=== PATIENT | male | born 1945 | race Caucasian/White ===

== ENCOUNTER 2016-08-30 17:43 | Emergency (ER) | payer MEDICARE, OTHER ==
[2016-08-30 18:27] VITALS: BP 170/100
== END 2016-08-30 18:26 | disposition home or self-care (01) ==
LOC: ER 17:43
DX: Z13.6 Encounter for screening for cardiovascular disorders (principal)

== ENCOUNTER 2016-12-26 05:52 | Day surgery (SDC) | payer MEDICARE, OTHER ==
--- OUTSIDE RECORDS SUMMARY | 2016-12-26 05:55 | XMS REPORT | Continuity of Care Document ---
:1945 Author Organization [facility] ([facility]) Address [address] [place] [address] Phone [phone] Care Team Providers Name Role Phone Dereck Huddleston Primary Care Provider [phone] Source Comments This disclosure is being made pursuant to the Care Everywhere program, applicable federal and state laws, and may not contain all informaitonavailable regarding this patient.[facility] ([facility]) Active Allergies and Adverse Reactions No Known Allergies Current Medications Prescription Sig. Disp. Refills Start Date End Date Status tamsulosin (FLOMAX) 0.4 Take 0.4 mg by Active mg ER capsule mouth at bedtime carvedilol 12.5 mg tablet Take 1 mg by mouth Active 2 times daily with meals clopidogrel 75 mg tablet Take 1 mg by mouth Active daily atorvastatin 20 mg tablet Take 20 mg by mouth Active at bedtime pantoprazole 40 mg EC Take 1 mg by mouth Active tablet at bedtime zolpiDEM 10 mg tablet Take 10 mg by mouth Active at bedtime as needed fluticasone 50 Use 2 Sprays into Active mcg/Actuation nasal spray both nostrils 2 times daily lisinopril 5 mg tablet Take 5 mg by mouth Active daily venlafaxine 75 mg XR Take 75 mg by mouth Active tablet daily acetaminophen-codeine Take 1 Tab by mouth Active 300-30 mg per tablet every 6 hours as needed for Pain cyanocobalamin (VITAMIN Take 2,000 mcg by Active B-12) 1,000 mcg tablet mouth daily Take 2000 mg daily for one week (through 01/08/15), then decrease to 1000 mg daily. nitroglycerin 0.4 mg SL One tab under 01/01/2013 Active tablet tongue for chest pain; may repeat every 5 min up to total of 3 tabs multivitamin tablet Take 1 tablet by Active mouth daily. 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 Last Filed Vital Signs Vital Sign Reading Time Taken Blood Pressure 140/95 07/15/2016 9:58 AM [employer] Pulse 58 07/15/2016 9:58 AM [employer] Temperature 36.7 C (98.1 F) 01/07/2015 8:00 AM CDT Respiratory Rate 16 01/07/2015 8:00 AM CDT Height 1.829 m (6' 0.01") 07/15/2016 9:58 AM [employer] Weight 93.6 kg (206 lb 5.6 oz) 07/15/2016 9:58 AM [employer] Body Mass Index 27.98 07/15/2016 9:58 AM [employer] Oxygen Saturation 98% 07/15/2016 9:58 AM [employer] Plan of Care Date Type Specialty Providers Description 07/21/2017 Appointment Neurology Aubrie Gerardo MD Subj: Appointment Scheduled [address] [place] [address] [phone] (Fax) Health Maintenance Due Date Last Done Comments HCV Screening 1945 Hepatitis B Vaccine (1 of 3 - 1945 Primary Series) Tdap Vaccine 1956 DIABETIC: Microalbumin 1963 Td Vaccine 1963 Colonoscopy 1995 Prostate Cancer Screening 1995 Zoster Vaccine 2005 Pneumococcal Vaccine (1 of 2 2010 - PCV13) DIABETIC: Cholesterol 11/07/2010 11/07/2009 Diabetic: Hdl 11/07/2010 11/07/2009 Diabetic: Ldl 11/07/2010 11/07/2009 DIABETIC: Triglycerides 11/07/2010 11/07/2009 DIABETIC: Foot Exam 12/26/2014 DIABETIC: Retinal Eye Exam 12/26/2014 Influenza Vaccine: Seasonal 03/18/2016 08/30/2014, (#1) 05/28/2014 DIABETIC: Hemoglobin A1C 04/03/2016 10/04/2015, Additional history exists 10/04/2015 (Previously completed), 12/26/2014 Results from Last 3 Months Not on file
[2016-12-26] MEDS ORDERED: DEXAMETHASONE SOD PHOSPHATE 10 MG/ML VIAL IV PRN (06:00)
[2016-12-26] MEDS ORDERED: MORPHINE SULFATE 4 MG/ML SYRG IV PRN ×2 (06:00)
[2016-12-26] MEDS ORDERED: ONDANSETRON HCL/PF 2 MG/ML VIAL IV PRN (06:00)
[2016-12-26] MEDS ORDERED: ceFAZolin SODIUM 1 GM in DEXTROSE 5 % IN WATER 100 ML IV PRN ×2 (06:00)
[2016-12-26] MEDS ORDERED: MORPHINE SULFATE 10 MG/ML SYRG IV PRN ×2 (06:00)
[2016-12-26] MEDS ORDERED: ACETAMINOPHEN 325 MG TABLET PO PRN (06:00)
[2016-12-26] MEDS ORDERED: oxyCODONE HCL/ACETAMINOPHEN 1 TAB TABLET PO PRN ×2 (06:00)
[2016-12-26] MEDS ORDERED: RINGERS SOLUTION,LACTATED 1,000 ML IV PRN (06:00)
[2016-12-26] MEDS ORDERED: RINGERS SOLUTION,LACTATED 1,000 ML IV ONE (06:56)
[2016-12-26] MEDS: OXYMETAZOLINE HCL 150 SPRAY BTL NS PRN ×2 (06:56→06:58)
[2016-12-26] MEDS ORDERED: ceFAZolin SODIUM 1 GM VIAL IV ONE (07:15)
[2016-12-26] MEDS ORDERED: COCAINE HCL 4 APPL BTL TP ONE (07:18)
[2016-12-26] MEDS ORDERED: LIDOCAINE HCL/EPINEPHRINE 30 ML VIAL IJ ONE ×2 (07:18)
[2016-12-26] MEDS ORDERED: MUPIROCIN 22 APPL TUBE TP ONE (07:22)
[2016-12-26 09:27] VITALS: BP 135/84
== END 2016-12-26 05:53 | disposition home or self-care (01) ==
LOC: AMB 05:52
PROVIDERS: ATTEND Allergy & Immunology
PROC: 09SM0ZZ Reposition Nasal Septum, Open Approach (ICD-10-PCS; principal; 2016-12-26 07:00)
DX: J34.2 Deviated nasal septum (principal); J34.3 Hypertrophy of nasal turbinates; I10 Essential (primary) hypertension; E07.9 Disorder of thyroid, unspecified; Z87.891 Personal history of nicotine dependence; Z68.29 Body mass index [BMI] 29.0-29.9, adult

== ENCOUNTER 2017-02-28 09:50 | Emergency (ER) | payer MEDICARE, OTHER ==
[2017-02-28 10:41] LABS: Hematocrit 34.9 % (42.0-52.0); Hemoglobin 11.5 gm/dL (13.5-18.0); Mean Cell Volume 83.7 fl (78-100); Mean Corpuscular Hemoglobin 27.6 pg (27-31); Mean Platelet Volume 10.3 fl (6.0-9.5); Neutrophil # 5.3 K/mm3 (1.3-6.0); Neutrophil % 68.3 % (42-75.0); Platelet Count 199 K/mm3 (150-450); Red Blood Count 4.17 M/mm3 (4.7-6.0); Red Cell Distribution Width 15.5 % (11.5-14.0); White Blood Count 7.7 K/mm3 (4.0-10.5)
[2017-02-28 11:00] LABS: Troponin I Less than 0.017 ng/ml (0.00-0.10)
[2017-02-28 11:02] LABS: ALT 35 U/L (19-67); AST 16 U/L (0-48); Albumin * 3.4 gm/dl (3.4-5.0); Alkaline Phosphatase * 141 U/L (50-170); Anion Gap 7.1 mmol/L (6.8-13.8); BNP * 45 pg/mL (5-350); BUN/Creatinine Ratio 12.8 (9.0-21.6); Bilirubin, Total 0.7 mg/dL (0.0-1.1); Blood Urea Nitrogen 11 mg/dL (6-23); Ca. Corrected For Albumin 8.5 mg/dL (8.4-10.2); Calcium * 8.3 mg/dL (7.9-10.9); Carbon Dioxide 29.6 mmol/L (24-32.6); Chloride 108 mmol/L (97-106); Glucose * 125 mg/dL (70-110); Potassium 3.7 mmol/L (3.4-4.6); Sodium 141 mmol/L (132-142); Total Protein 6.7 gm/dL (6.2-8.2)
[2017-02-28 11:28] LABS: INR 1.04 INR (0.90-1.10); Partial Thrombolplastin Time 26.5 Seconds (24-32); Prothrombin Time (Patient) 10.8 Seconds (9.4-11.4)
--- NOTE | 2017-02-28 11:43 | ERNOTE ---
GI Bleeding/Rectal Pain ER Date of Service: 02/28/17 Presenting Symptoms: rectal bleeding - patient had colonscpe with polyps removed, went back onplavix had small amont of bleeding rectally this am Time Seen by Provider: 02/28/17 10:10 Source: patient Exam Limitations: no limitations Immunizations: IMMUNIZATION HX Immunizations Up to Date Yes History of Influenza Vaccine Yes Hx Pneumococcal Vaccination Yes Allergies/Adverse Reactions: Allergies No Known Allergies Allergy (Verified 02/28/17 10:23) Home Medications: HOME MEDICATIONS Clopidogrel Bisulfate [Plavix] 75 mg PO DAILY 07/03/13 [Last Taken 12/21/16 08: 00] Fluticasone Propionate [Flonase] 2 puff NS DAILY PRN 07/03/13 [Last Taken Unknown] Lisinopril 10 mg PO DAILY 07/03/13 [Last Taken Unknown] Tamsulosin HCl [Flomax] 0.4 mg PO DAILY 07/03/13 [Last Taken Unknown] Zolpidem Tartrate [Ambien] 10 mg PO HS 07/03/13 [Last Taken Unknown] Acetaminophen with Codeine [Tylenol-Codeine 300 MG/30 MG] 1 each PO TID PRN [Last Taken Unknown] Carvedilol [Coreg] 6.25 mg PO BID 12/23/16 [Last Taken 12/26/16 05:30] Finasteride [Proscar] 5 mg PO DAILY 12/23/16 [Last Taken Unknown] Mirtazapine 7.5 mg PO DAILY 12/23/16 [Last Taken Unknown] Budesonide/Formoterol Fumarate [Symbicort 80-4.5 Mcg Inhaler] 10.2 gm IH DAILY 02/28/17 [Last Taken Unknown] Zoloft 02/28/17 [Last Taken Unknown] Timing: intermittent Quality/Severity: Present: mild Nausea/Vomiting: Present: none Abdominal Pain: Present: none Rectal Bleeding: Present: bright red blood on paper Associated Symptoms: Reports: maroon stools Prior Treament: Reports: recently seen, treated by physician Review of Systems - Review of Systems Constitutional: Present: no symptoms reported EYE: Present: no symptoms reported ENT: Present: no symptoms reported Respiratory: Present: no symptoms reported Cardiology: Present: no symptoms reported Gastrointestinal/Abdominal: Present: other - rectal bleeding Genitourinary: Present: no symptoms reported Musculoskeletal: Present: no symptoms reported Skin: Present: no symptoms reported Neurological: Present: no symptoms reported Endocrine: Present: no symptoms reported Hematologic/Lymphatic: Present: no symptoms reported Psych: Present: no symptoms reported All Other Systems: All systems neg except as marked - Patient's Past Medical History Patient History - Medical: No pertinent hx, Anemia Patient History - Cardiac/Respiratory: COPD, CVA/Stroke, Hypertension, Hyperlipidemia Patient History - Cancer: No Hx of Cancer Patient History - Surgical Procedures: Appendectomy, Back Surgery, Colonoscopy, Cardiac stent, T & A, Other Patient History - Other: None - Family History Mother Family History - Medical: , No pertinent hx Family History - Cardiac/Respiratory: CVA/Stroke Family History - Cancer: No pertinent family hx Father Family History - Medical: , No pertinent hx Family History - Cardiac/Respiratory: No pertinent hx Family History - Cancer: Bladder - Social History Living Situations: home Abuse History: No History of abuse Psych History: Hx of Anxiety, Hx of Depression, Current tx/ever been on anti- depressants or anti-anxiety meds Smoking Status: Former smoker Have you smoked in the past 12 months: No Do you dip or chew tobacco: No Alcohol Use: none Drug Use: none - Immunizations Immunizations Up to Date: Yes Hx Pneumococcal Vaccination: Yes History of Influenza Vaccine: Yes Physical Exam - Physical Exam General Appearance: Present: no apparent distress Head Exam: Present: normal inspection Eye Exam: Normal inspection: bilateral, PERRL: bilateral, EOMI: bilateral Ears, Nose, Throat: Present: normal ENT inspection Neck: Present: normal inspection, nontender Respiratory: Present: no respiratory distress, normal breath sounds, no accessory muscle use, chest nontender, lungs clear Cardiovascular/Chest: Present: regular rate, rhythm, no murmur, normal peripheral pulses Peripheral Pulses: N=norm/S=strong/W=weak/B=bound/A=absent: Carotid (R): Normal , Carotid (L): Normal, Radial (R): Normal, Radial (L): Normal, Femoral (R): Normal, Femoral (L): Normal, Dorsalis-pedis (R): Normal, Dorsalis-pedis (L): Normal Gastrointestinal/Abdominal: Present: normal bowel sounds, nontender, nondistended, soft, no organomegaly Rectal Exam: Present: nontender, normal rectal tone - no evidense of bleediing in [id number] Male Genitals Exam: Present: normal genitalia, normal prostate, no hernia Back Exam: Present: normal inspection, normal range of motion, no CVA tenderness , no vertebral tenderness Extremity Exam: Present: normal inspection, non-tender, normal range of motion, no edema Neurological Exam: Present: alert, oriented, normal mood/affect, no motor/ sensory deficits DTR: N=norm/NB=norm/brisk/A=abs/DD=dull/dimin/HC=hyperactive: Bicep (R): Normal , Bicep (L): Normal, Tricep (R): Normal, Tricep (L): Normal, Knee (R): Normal, Knee (L): Normal, Ankle (R): Normal, Ankle (L): Normal Skin Exam: Present: normal color, warm/dry Lymphatic Exam: Present: no adenopathy ED Progress - Results and Orders Patient's Lab Results:: I have reviewed the patient's lab results. - Vital Signs Patient's Vital Signs:: I have reviewed the patient's vital signs. Vital Signs: Vital Signs 02/28/17 02/28/17 02/28/17 10:03 10:19 10:20 Temperature 36.7 C Pulse Rate 63 63 63 Respiratory 22 H 17 Rate Blood Pressure 147/75 181/86 O2 Sat by Pulse 98 98 Oximetry 02/28/17 02/28/17 02/28/17 10:35 11:05 11:17 Temperature Pulse Rate 62 63 64 Respiratory 12 16 15 Rate Blood Pressure 151/82 145/83 131/79 O2 Sat by Pulse 97 98 96 Oximetry - Progress/Reassessment Chief Complaint: GI Bleed Departure Clinical Impression: Rectal bleeding - Departure Disposition: Home self-care Condition: Fair Instructions: Bloody Diarrhea Referrals: Dereck Owen MD [Primary Care Provider] -
[2017-02-28 12:13] VITALS: BP 142/59
== END 2017-02-28 11:50 | disposition home or self-care (01) ==
LOC: ER 09:50
DX: K62.5 Hemorrhage of anus and rectum (principal); Z98.890 Other specified postprocedural states; Z86.010 Personal history of colon polyps

== ENCOUNTER 2017-03-18 15:35 | Observation (INO) | payer MEDICARE, OTHER ==
[2017-03-18 15:55] LABS: Hematocrit 32.5 % (42.0-52.0); Hemoglobin 10.8 gm/dL (13.5-18.0); Mean Cell Volume 84.2 fl (78-100); Mean Corpuscular Hgb Conc 33.2 g/dl (32-36); Neutrophil # 4.5 K/mm3 (1.3-6.0); Neutrophil % 65.7 % (42-75.0); Platelet Count 229 K/mm3 (150-450); Red Blood Count 3.86 M/mm3 (4.7-6.0); Red Cell Distribution Width 14.3 % (11.5-14.0); White Blood Count 6.9 K/mm3 (4.0-10.5)
[2017-03-18] MEDS ORDERED: ASPIRIN 81 MG TAB.CHEW ONE (16:03)
[2017-03-18] MEDS ORDERED: NITROGLYCERIN 0.4 MG/TAB BTL SL ONE ×2 (16:04→16:10)
[2017-03-18] MEDS ORDERED: ASPIRIN 81 MG TAB.CHEW PO ONE (16:04)
[2017-03-18 16:07] LABS: Prothrombin Time (Patient) 10.7 Seconds (9.4-11.4)
[2017-03-18 16:09] LABS: INR 1.03 INR (0.90-1.10); Partial Thrombolplastin Time 28.9 Seconds (24-32)
--- NOTE | 2017-03-18 16:12 | ERNOTE ---
Chest Pain/Cardiac HPI Chief Complaint: Chest Pain Time Seen by Provider: 03/18/17 15:58 Source: patient Exam Limitations: no limitations Immunizations: IMMUNIZATION HX Immunizations Up to Date Yes History of Influenza Vaccine Yes Hx Pneumococcal Vaccination Yes Allergies/Adverse Reactions: Allergies No Known Allergies Allergy (Verified 03/18/17 15:53) Home Medications: HOME MEDICATIONS Clopidogrel Bisulfate [Plavix] 75 mg PO DAILY 07/03/13 [Last Taken 12/21/16 08: 00] Fluticasone Propionate [Flonase] 2 puff NS DAILY PRN 07/03/13 [Last Taken Unknown] Lisinopril 10 mg PO DAILY 07/03/13 [Last Taken Unknown] Tamsulosin HCl [Flomax] 0.4 mg PO DAILY 07/03/13 [Last Taken Unknown] Zolpidem Tartrate [Ambien] 10 mg PO HS 07/03/13 [Last Taken Unknown] Carvedilol [Coreg] 6.25 mg PO BID 12/23/16 [Last Taken 12/26/16 05:30] Finasteride [Proscar] 5 mg PO DAILY 12/23/16 [Last Taken Unknown] Mirtazapine 7.5 mg PO DAILY 12/23/16 [Last Taken Unknown] Budesonide/Formoterol Fumarate [Symbicort 80-4.5 Mcg Inhaler] 10.2 gm IH DAILY 02/28/17 [Last Taken Unknown] Zoloft PO DAILY 02/28/17 [Last Taken Unknown] Narrative: Patient has a history of an NM treated with a stent about four years ago. Today with minimal activity he started to have chest pressure, mild shortness of breath and felt clammy and is concerned Date (Duration): 03/18/17 Time (Timing): 12:00 Location: central Chest Pain Radiation: no radiation Activities at Onset: activity Nitro Today/Relief: no nitro taken today Aspirin Treatment Today: no aspirin today Prior Chest Pain/Cardiac Workup: Reports: prior chest pain, heart attack Review of Systems - Review of Systems Constitutional: Absent: recent illness, fever ENT: Absent: nose congestion, sore throat Respiratory: Present: See HPI, shortness of breath. Absent: cough Cardiology: Present: See HPI, chest pain Gastrointestinal/Abdominal: Absent: nausea, vomiting, abdominal pain Genitourinary: Present: no symptoms reported Musculoskeletal: Absent: back pain Neurological: Absent: headache - Patient's Past Medical History Patient History - Medical: Anemia Patient History - Cardiac/Respiratory: Coronary Heart Disease, COPD, CVA/Stroke , Hypertension, Hyperlipidemia Patient History - Cancer: No Hx of Cancer Patient History - Surgical Procedures: Appendectomy, Back Surgery, Colonoscopy, Cardiac stent, T & A, Other Patient History - Other: None - Family History Mother Family History - Medical: , No pertinent hx Family History - Cardiac/Respiratory: CVA/Stroke Family History - Cancer: No pertinent family hx Father Family History - Medical: , No pertinent hx Family History - Cardiac/Respiratory: No pertinent hx Family History - Cancer: Bladder - Social History Living Situations: home Abuse History: No History of abuse Psych History: Hx of Anxiety, Hx of Depression, Current tx/ever been on anti- depressants or anti-anxiety meds Smoking Status: Never smoker Alcohol Use: none Drug Use: none - Immunizations Immunizations Up to Date: Yes Hx Pneumococcal Vaccination: Yes History of Influenza Vaccine: Yes Physical Exam - Physical Exam General Appearance: Present: wd/wn, alert, no apparent distress, anxious Respiratory: Present: no respiratory distress, normal breath sounds, no accessory muscle use, lungs clear Cardiovascular/Chest: Present: regular rate, rhythm, no murmur Gastrointestinal/Abdominal: Present: normal bowel sounds, nontender, nondistended, soft Extremity Exam: Present: no edema Neurological Exam: Present: alert, oriented, normal mood/affect Skin Exam: Present: normal color, warm/dry ED Progress - Results and Orders Patient's Lab Results:: I have reviewed the patient's lab results. - Vital Signs Patient's Vital Signs:: I have reviewed the patient's vital signs. Vital Signs: Vital Signs 03/18/17 03/18/17 15:39 15:49 Temperature 36.8 C Pulse Rate 63 66 Respiratory 14 Rate Blood Pressure 164/84 O2 Sat by Pulse 94 Oximetry - EKG EKG: NSR, other - no acute EKG read: Interp. by me - X-Ray X-Ray #1 X-Ray: chest - no acute Interpretation: Reviewed by me - Progress/Reassessment Chief Complaint: Chest Pain Progress Note-Subjective: 03/18/17 16:10 pressure improved after first nitro 03/18/17 16:20 chest pain resolved after second nitro 03/18/17 16:37 no pain, discussed results with patient, offered admission, patient agreed 03/18/17 16:[address] Peña 03/18/17 16:[address] Peña,okay to admit for chest pain observation Departure - Departure Clinical Impression: Chest pain Qualifiers: Chest pain type: precordial pain Qualified Code(s): R07.2 - Precordial pain Disposition: [facility] Condition: Good Referrals: Dereck Owen MD [Primary Care Provider] -
[2017-03-18 16:15] LABS: ALT 20 U/L (19-67); AST 13 U/L (0-48); Albumin * 3.6 gm/dl (3.4-5.0); Alkaline Phosphatase * 152 U/L (50-170); BUN/Creatinine Ratio 7.1 (9.0-21.6); Bilirubin, Total 0.7 mg/dL (0.0-1.1); Blood Urea Nitrogen 7 mg/dL (6-23); Ca. Corrected For Albumin 8.3 mg/dL (8.4-10.2); Calcium * 8.3 mg/dL (7.9-10.9); Carbon Dioxide 27.7 mmol/L (24-32.6); Chloride 108 mmol/L (97-106); Glucose * 133 mg/dL (70-110); Potassium 3.7 mmol/L (3.4-4.6); Sodium 143 mmol/L (132-142); Total Protein 7.1 gm/dL (6.2-8.2)
[2017-03-18 16:18] LABS: Troponin I Less than 0.017 ng/ml (0.00-0.10)
[2017-03-18] MEDS ORDERED: ATORVASTATIN CALCIUM 40 MG TABLET PO STA (16:56)
[2017-03-18] MEDS ORDERED: NITROGLYCERIN 0.4 MG/TAB BTL SL PRN ×2 (16:56→20:14)
[2017-03-18] MEDS ORDERED: ROSUVASTATIN CALCIUM 20 MG TABLET PO STA (17:03)
[2017-03-18] MEDS ORDERED: ACETAMINOPHEN 325 MG TABLET PO PRN (20:14)
[2017-03-18] MEDS ORDERED: FLUTICASONE PROPIONATE 120 SPRAY INHALER NS PRN (20:14)
[2017-03-18] MEDS ORDERED: POLYVINYL ALCOHOL 150 DROP BTL EACHEYE PRN (20:31)
--- NOTE | 2017-03-18 20:36 | HP ---
<Sanjuana Guerrero - Last Filed: 03/19/17 01:34> Chief Complaint - Chief Complaint Date of Service: 03/18/17 Time of Service: 20:36 Chief Complaint: chest pain, history cad with stent History of Present Illness: Teja is a 71 year old male patient of Dr Huddleston with a PMH of CAD with inferior wall STEMI in 12/2012 (stent to mid-circ and PTCA to 1st OM, currently on coreg, plavix and lipitor), HTN (on coreg and lisinopril), LEYDA (using cpap), multiple CVAs (including ICH 10/2009 from HTN, non-hemorrhagic CVA 12/2011 and non -hemorrhagic CVA 2013 - currently on Plavix), and gerd (on protonix) who presented to the ER today with c/o chest pressure and "not feeling well". Also c/o mild dyspnea. symptoms resolved in ER after 2 sl NTG. ER eval revealed non -acute chest xray. EKG showed NSR with no acute st-t wave changes. labs unremarkable except for anemia noted with hgb 10.8 (records reveal this appears to be chronic in nature). Patient admitted to the floor for chest pain of unknown etiology. Last echo 11/18/16 showed ef 50-55% with evidence of diastolic dysfunction, mild concentric LVH and trace MR, trace MA. last stress test was negative for stress induced ischemia. - Patient's Past Medical History Patient History - Medical: Anemia, Arthritis, Cataracts, Depression, Seizures, Other Patient History - Cardiac/Respiratory: Coronary Heart Disease, COPD, CVA/Stroke , Hypertension, Hyperlipidemia, Myocardial Infarction, TIA, CPAP/BiPAP Home Use , Sleep Apnea Patient History - Cancer: No Hx of Cancer Patient History - Surgical Procedures: Appendectomy, Back Surgery, Colonoscopy, Cardiac stent, T & A, Other Patient History - Other: None - Family History Mother Family History - Medical: , No pertinent hx Family History - Cardiac/Respiratory: Coronary Heart Disease, CVA/Stroke Family History - Cancer: No pertinent family hx Father Family History - Medical: , No pertinent hx Family History - Cardiac/Respiratory: No pertinent hx Family History - Cancer: Bladder Brother Family History - Medical: , No pertinent hx Family History - Cardiac/Respiratory: Coronary Heart Disease Sister Family History - Medical: No pertinent hx Family History - Cardiac/Respiratory: CVA/Stroke - Social History Living Situations: alone Abuse History: No History of abuse Psych History: Hx of Anxiety, Hx of Depression, Current tx/ever been on anti- depressants or anti-anxiety meds Smoking Status: Former smoker Have you smoked in the past 12 months: No Do you dip or chew tobacco: No Alcohol Use: none Drug Use: none - Immunizations Immunizations Up to Date: Yes Hx Pneumococcal Vaccination: Yes History of Influenza Vaccine: Yes Review Of Systems (GEN) - Review of Systems Generalized/Overall Review: Present: No Symptoms Reported EENTM: Present: No Symptoms Reported Respiratory: Present: Shortness of Breath. Absent: Cough, Wheezing Cardiac: Present: Chest Pain. Absent: Edema, Palpitations, Syncope Abdominal: Present: No Symptoms Reported Genitourinary: Present: No Symptoms Reported Musculoskeletal: Present: No Symptoms Reported Neurological: Present: No Symptoms Reported Skin: Present: No Symptoms Reported Endocrine: Present: No Symptoms Reported Misc: All systems neg except as marked Immunizations: IMMUNIZATION HX Immunizations Up to Date Yes History of Influenza Vaccine Yes Hx Pneumococcal Vaccination Yes Allergies/Adverse Reactions: Allergies Allergy/AdvReac Type Severity Reaction Status Date / Time No Known Allergies Allergy Verified 03/18/17 17:28 Home Medications: HOME MEDICATIONS Clopidogrel Bisulfate [Plavix] 75 mg PO DAILY 07/03/13 [Last Taken 03/18/17 09: 00] Fluticasone Propionate [Flonase] 2 puff NS DAILY PRN 07/03/13 [Last Taken 10:00] Lisinopril 5 mg PO DAILY 07/03/13 [Last Taken 03/18/17 09:00] Tamsulosin HCl [Flomax] 0.4 mg PO DAILY 07/03/13 [Last Taken 03/17/17 21:00] Zolpidem Tartrate [Ambien] 10 mg PO HS 07/03/13 [Last Taken 03/17/17 21:00] Carvedilol [Coreg] 6.25 mg PO BID 12/23/16 [Last Taken 03/18/17 09:00] Finasteride [Proscar] 5 mg PO DAILY 12/23/16 [Last Taken 03/17/17 21:00] Budesonide/Formoterol Fumarate [Symbicort 80-4.5 Mcg Inhaler] 10.2 gm IH BID [Last Taken Unknown] Acetaminophen [Tylenol] 650 mg PO Q6H PRN 03/18/17 [Last Taken Unknown] Atorvastatin Calcium [Lipitor] 20 mg PO DAILY 03/18/17 [Last Taken Unknown] Bupropion HCl [Wellbutrin Sr] 150 mg PO DAILY 03/18/17 [Last Taken Unknown] Cyanocobalamin (Vitamin B-12) [Vitamin B-12] 1,000 mcg PO BID 03/18/17 [Last Taken Unknown] Dextran 70/Hypromellose/Pf [Artificial Tears Drops] 1 each OP QID PRN 03/18/17 [ Last Taken Unknown] Ferrous Sulfate 325 mg PO TID 03/18/17 [Last Taken Unknown] Nitroglycerin 0.4 mg SL Q5MIN PRN 03/18/17 [Last Taken 03/18/17] Pantoprazole Sodium 40 mg PO DAILY 03/18/17 [Last Taken Unknown] Polyethylene Glycol 3350 [Miralax] 17 gm PO DAILY PRN 03/18/17 [Last Taken Unknown] Venlafaxine HCl [Venlafaxine HCl ER] 75 mg PO DAILY 03/18/17 [Last Taken Unknown ] Exam - Exam Vital Signs: Vital Signs - Last Taken Temp 36.3 C L 03/18/17 18:50 Pulse 57 L 03/18/17 18:50 Resp 16 03/18/17 18:50 BP 128/73 03/18/17 18:50 Pulse Ox 98 03/18/17 18:50 Constitutional: Present: Alert, Oriented x3, Cooperative, No distress, Elderly ENT Exam: Present: hearing grossly normal Eye Exam: bilateral eye: normal inspection Neck: Present: full range of motion, supple Back Exam: Present: normal inspection, no vertebral tenderness Breasts: Present: Exam deferred Respiratory: Present: no respiratory distress, no accessory muscle use, decreased breath sounds Cardiovascular/Chest: Present: normal peripheral pulses, regular rate, rhythm, no chest tenderness, no murmur Peripheral Pulses: carotid (R): 2+, carotid (L): 2+, dorsalis-pedis (R): 2+, dorsalis-pedis (L): 2+, radial (R): 2+, radial (L): 2+ Abdomen: Present: Normal bowel sounds, soft, nontender, nondistended /Rectal: Present: Exam deferred Extremity: Present: normal range of motion, non-tender, normal inspection Skin Exam: Present: normal color, warm/dry, no cyanosis Diagnostic Studies: Laboratory Results WBC 6.9 K/mm3 (4.0-10.5) 03/18/17 15:41 RBC 3.86 M/mm3 (4.7-6.0) L 03/18/17 15:41 Hgb 10.8 gm/dL (13.5-18.0) L 03/18/17 15:41 Hct 32.5 % (42.0-52.0) L 03/18/17 15:41 MCV 84.2 fl (78-100) 03/18/17 15:41 MCH 28.0 pg (27-31) 03/18/17 15:41 MCHC 33.2 g/dl (32-36) 03/18/17 15:41 RDW 14.3 % (11.5-14.0) H 03/18/17 15:41 Plt Count 229 K/mm3 (150-450) 03/18/17 15:41 MPV 11.0 fl (6.0-9.5) H 03/18/17 15:41 Immature Gran % (Auto) 0.70 % (0.001-0.429) H 03/18/17 15:41 Immature Gran # (Auto) 0.05 K/mm3 (0.000-0.0310) H 03/18/17 15:41 Neutrophils % 65.7 % (42-75.0) 03/18/17 15:41 Lymphocytes % 22.6 % (20-51) 03/18/17 15:41 Monocytes % 7.5 % (0.0-9) 03/18/17 15:41 Eosinophils % 2.8 % (0.0-3.0) 03/18/17 15:41 Basophils % 0.7 % (0.0-1.0) 03/18/17 15:41 Nucleated RBC % 0.0 k/mm3 (0-1) 03/18/17 15:41 Neutrophils # 4.5 K/mm3 (1.3-6.0) 03/18/17 15:41 Lymphocytes # 1.6 k/mm3 (1.5-3.5) 03/18/17 15:41 Monocytes # 0.5 k/mm3 (0.0-1.0) 03/18/17 15:41 Eosinophils # 0.2 k/mm3 (0.0-0.7) 03/18/17 15:41 Absolute Basophils 0.1 k/mm3 (0.0-0.1) 03/18/17 15:41 PT 10.7 Seconds (9.4-11.4) 03/18/17 15:47 INR (Anticoag Therapy) 1.03 INR (0.90-1.10) 03/18/17 15:47 PTT (Real) 28.9 Seconds (24-32) 03/18/17 15:47 Sodium 143 mmol/L (132-142) H 03/18/17 15:47 Plasma Sodium 144 mmol/L (130-142) H 03/18/17 15:47 Potassium 3.7 mmol/L (3.4-4.6) 03/18/17 15:47 Chloride 108 mmol/L (97-106) H 03/18/17 15:47 Carbon Dioxide 27.7 mmol/L (24-32.6) 03/18/17 15:47 Anion Gap 11.0 mmol/L (6.8-13.8) 03/18/17 15:47 BUN 7 mg/dL (6-23) 03/18/17 15:47 Creatinine 0.98 mg/dL (0.4-1.4) 03/18/17 15:47 Est GFR (Non-Af Amer) 80 mL/min (60-130) 03/18/17 15:47 BUN/Creatinine Ratio 7.1 (9.0-21.6) L 03/18/17 15:47 Random Glucose 133 mg/dL (70-110) H 03/18/17 15:47 Calcium 8.3 mg/dL (7.9-10.9) 03/18/17 15:47 Calcium Adj for Albumin 8.3 mg/dL (8.4-10.2) L 03/18/17 15:47 Total Bilirubin 0.7 mg/dL (0.0-1.1) 03/18/17 15:47 AST 13 U/L (0-48) 03/18/17 15:47 ALT 20 U/L (19-67) 03/18/17 15:47 Alkaline Phosphatase 152 U/L (50-170) 03/18/17 15:47 Troponin I Less than 0.017 ng/ml (0.00-0.10) 03/18/17 15:47 Total Protein 7.1 gm/dL (6.2-8.2) 03/18/17 15:47 Albumin 3.6 gm/dl (3.4-5.0) 03/18/17 15:47 Assessment/Plan - Narrative Narrative: Chest pain of unknown etiology - 1st troponin negative - trend troponin overnight with a second EKG - no symptoms currently - recent stress test 11/19/16 showed no ischemia - monitor on telemetry - vital signs q 4 hours - continue coreg, plavix - if enzymes remain negative and patient continues to have no symptoms, likely discharge in am. HTN - vital signs q 4 hours - continue coreg and lisinopril hx CVAs - continue plavix GERD - continue protonix anemia - hgb stable. - likely secondary to iron def. anemia and/or anemia of chronic disease - cont iron supplement LEYDA - cont cpap while admitted BPH - cont proscar and flomax Code status: Full Code VTE: early ambulation GI Proph: protonix po. - Assessment/Plan (1) Chest pain of unknown etiology Problem: Acute (2) History of ST elevation myocardial infarction (STEMI) Problem: Chronic (3) CAD (coronary artery disease) Problem: Chronic QualifierTitle: Coronary Disease-Associated Artery/Lesion type: enterprise artery [place] vs. transplanted heart: enterprise heart Associated angina: angina presence unspecified Qualified Code(s): I25.10 - Atherosclerotic heart disease of enterprise coronary artery without angina pectoris (4) CVA (cerebral vascular accident) Problem: Chronic QualifierTitle: CVA mechanism: unspecified Qualified Code(s): I63.9 - Cerebral infarction, unspecified (5) LEYDA on CPAP Problem: Chronic (6) HTN (hypertension) Problem: Chronic QualifierTitle: Hypertension type: essential hypertension Qualified Code( s): I10 - Essential (primary) hypertension (7) GERD (gastroesophageal reflux disease) Problem: Chronic QualifierTitle: Esophagitis presence: esophagitis presence not specified Qualified Code(s): K21.9 - Gastro-esophageal reflux disease without esophagitis (8) Depression Problem: Chronic QualifierTitle: Depression Type: unspecified Qualified Code(s): F32.9 - Major depressive disorder, single episode, unspecified (9) BPH (benign prostatic hyperplasia) Problem: Chronic QualifierTitle: Lower urinary tract symptom presence: symptoms absent Qualified Code(s): N40.0 - Benign prostatic hyperplasia without lower urinary tract symptoms (10) Anemia Problem: Chronic QualifierTitle: Anemia type: unspecified type Qualified Code(s): D64.9 - Anemia, unspecified <Dereck Owen - Last Filed: 03/19/17 08:50> Immunizations: IMMUNIZATION HX Immunizations Up to Date Yes History of Influenza Vaccine Yes Hx Pneumococcal Vaccination Yes Exam - Exam Vital Signs: Vital Signs - Last Taken Temp 36.4 C L 03/19/17 03:06 Pulse 59 L 03/19/17 08:08 Resp 21 H 03/19/17 03:06 BP 170/86 03/19/17 08:08 Pulse Ox 94 03/19/17 03:06 Diagnostic Studies: Laboratory Results WBC 6.9 K/mm3 (4.0-10.5) 03/18/17 15:41 RBC 3.86 M/mm3 (4.7-6.0) L 03/18/17 15:41 Hgb 10.8 gm/dL (13.5-18.0) L 03/18/17 15:41 Hct 32.5 % (42.0-52.0) L 03/18/17 15:41 MCV 84.2 fl (78-100) 03/18/17 15:41 MCH 28.0 pg (27-31) 03/18/17 15:41 MCHC 33.2 g/dl (32-36) 03/18/17 15:41 RDW 14.3 % (11.5-14.0) H 03/18/17 15:41 Plt Count 229 K/mm3 (150-450) 03/18/17 15:41 MPV 11.0 fl (6.0-9.5) H 03/18/17 15:41 Immature Gran % (Auto) 0.70 % (0.001-0.429) H 03/18/17 15:41 Immature Gran # (Auto) 0.05 K/mm3 (0.000-0.0310) H 03/18/17 15:41 Neutrophils % 65.7 % (42-75.0) 03/18/17 15:41 Lymphocytes % 22.6 % (20-51) 03/18/17 15:41 Monocytes % 7.5 % (0.0-9) 03/18/17 15:41 Eosinophils % 2.8 % (0.0-3.0) 03/18/17 15:41 Basophils % 0.7 % (0.0-1.0) 03/18/17 15:41 Nucleated RBC % 0.0 k/mm3 (0-1) 03/18/17 15:41 Neutrophils # 4.5 K/mm3 (1.3-6.0) 03/18/17 15:41 Lymphocytes # 1.6 k/mm3 (1.5-3.5) 03/18/17 15:41 Monocytes # 0.5 k/mm3 (0.0-1.0) 03/18/17 15:41 Eosinophils # 0.2 k/mm3 (0.0-0.7) 03/18/17 15:41 Absolute Basophils 0.1 k/mm3 (0.0-0.1) 03/18/17 15:41 PT 10.7 Seconds (9.4-11.4) 03/18/17 15:47 INR (Anticoag Therapy) 1.03 INR (0.90-1.10) 03/18/17 15:47 PTT ([place]) 28.9 Seconds (24-32) 03/18/17 15:47 Sodium 143 mmol/L (132-142) H 03/18/17 15:47 Plasma Sodium 144 mmol/L (130-142) H 03/18/17 15:47 Potassium 3.7 mmol/L (3.4-4.6) 03/18/17 15:47 Chloride 108 mmol/L (97-106) H 03/18/17 15:47 Carbon Dioxide 27.7 mmol/L (24-32.6) 03/18/17 15:47 Anion Gap 11.0 mmol/L (6.8-13.8) 03/18/17 15:47 BUN 7 mg/dL (6-23) 03/18/17 15:47 Creatinine 0.98 mg/dL (0.4-1.4) 03/18/17 15:47 Est GFR (Non-Af Amer) 80 mL/min (60-130) 03/18/17 15:47 BUN/Creatinine Ratio 7.1 (9.0-21.6) L 03/18/17 15:47 Random Glucose 133 mg/dL (70-110) H 03/18/17 15:47 Calcium 8.3 mg/dL (7.9-10.9) 03/18/17 15:47 Calcium Adj for Albumin 8.3 mg/dL (8.4-10.2) L 03/18/17 15:47 Total Bilirubin 0.7 mg/dL (0.0-1.1) 03/18/17 15:47 AST 13 U/L (0-48) 03/18/17 15:47 ALT 20 U/L (19-67) 03/18/17 15:47 Alkaline Phosphatase 152 U/L (50-170) 03/18/17 15:47 Troponin I Less than 0.017 ng/ml (0.00-0.10) 03/19/17 04:00 Total Protein 7.1 gm/dL (6.2-8.2) 03/18/17 15:47 Albumin 3.6 gm/dl (3.4-5.0) 03/18/17 15:47 Assessment/Plan - Narrative Narrative: His symptoms yesterday came on at rest. They were indentical to his [place] symptoms. I directed all of our nurse practitioner hospitalist care for this patient.
[2017-03-18] MEDS ORDERED: POLYETHYLENE GLYCOL 3350 119 GM BTL PO PRN (20:45)
[2017-03-18] MEDS: FLUTICASONE/SALMETEROL 14 PUFF DISK.W.DEV IH SCH (20:51)
[2017-03-18] MEDS: FERROUS SULFATE 325 MG TABLET PO SCH (20:51)
[2017-03-18] MEDS: CYANOCOBALAMIN 1,000 MCG TABLET PO SCH (20:51)
[2017-03-18] MEDS: CARVEDILOL 6.25 MG TABLET PO SCH (20:52)
[2017-03-18] MEDS ORDERED: ZOLPIDEM TARTRATE 10 MG TABLET PO SCH (21:00)
[2017-03-19] MEDS ORDERED: PANTOPRAZOLE SODIUM 40 MG TABLET.EC PO SCH ×2 (07:00→09:00)
[2017-03-19] MEDS: FLUTICASONE/SALMETEROL 14 PUFF DISK.W.DEV IH SCH (08:05)
[2017-03-19] MEDS: CYANOCOBALAMIN 1,000 MCG TABLET PO SCH (08:07)
[2017-03-19] MEDS: FERROUS SULFATE 325 MG TABLET PO SCH (08:07)
[2017-03-19 08:08] VITALS: BP 170/86
[2017-03-19] MEDS: CARVEDILOL 6.25 MG TABLET PO SCH (08:08)
--- NOTE | 2017-03-19 08:56 | DS ---
Description of Stay: Remained stable while in the hospital. No recurrence of symptoms. Sequential EKGs and troponins nondiagnostic. I spoke by phone with Dr. Yuen, conveyor mechanic for Dr. Reddy, cardiology, [facility]'s usual monogram operator. He requested the patient come by private vehicle to his office this morning. Arrangements will be made. Procedures Performed: none Discharge Disposition: Home self care Disposition: Home self-care Condition: Good Discharge Activity: Activity as tolerated Discharge Diet: Low fat/chol Referrals: Dereck Owen MD [Primary Care Provider] - Problem Oriented Discharge Instructions to Patient/Family: Angina Pectoris, [id number] Additional Patient Instructions (free text): To see Cardiology at [facility] offices today at 11:00am in [place], [place]. Complete Home Medications List: Complete Home Medication List: Clopidogrel Bisulfate [Plavix] 75 mg PO DAILY 07/03/13 Fluticasone Propionate [Flonase] 2 puff NS DAILY PRN 07/03/13 Lisinopril 5 mg PO DAILY 07/03/13 Tamsulosin HCl [Flomax] 0.4 mg PO DAILY 07/03/13 Zolpidem Tartrate [Ambien] 10 mg PO HS 07/03/13 Carvedilol [Coreg] 6.25 mg PO BID 12/23/16 Finasteride [Proscar] 5 mg PO DAILY 12/23/16 Budesonide/Formoterol Fumarate [Symbicort 80-4.5 Mcg Inhaler] 10.2 gm IH BID Acetaminophen [Tylenol] 650 mg PO Q6H PRN 03/18/17 Atorvastatin Calcium [Lipitor] 20 mg PO DAILY 03/18/17 Bupropion HCl [Wellbutrin Sr] 150 mg PO DAILY 03/18/17 Cyanocobalamin (Vitamin B-12) [Vitamin B-12] 1,000 mcg PO BID 03/18/17 Dextran 70/Hypromellose/Pf [Artificial Tears Drops] 1 each OP QID PRN 03/18/17 Ferrous Sulfate 325 mg PO TID 03/18/17 Nitroglycerin 0.4 mg SL Q5MIN PRN 03/18/17 Pantoprazole Sodium 40 mg PO DAILY 03/18/17 Polyethylene Glycol 3350 [Miralax] 17 gm PO DAILY PRN 03/18/17 Venlafaxine HCl [Venlafaxine HCl ER] 75 mg PO DAILY 03/18/17
[2017-03-19] MEDS ORDERED: LISINOPRIL 5 MG TABLET PO SCH (09:00)
[2017-03-19] MEDS ORDERED: VENLAFAXINE HCL 37.5 MG CAP.SR.24H PO SCH (09:00)
[2017-03-19] MEDS ORDERED: CLOPIDOGREL BISULFATE 75 MG TABLET PO SCH (09:00)
[2017-03-19] MEDS ORDERED: LISINOPRIL 10 MG TABLET PO SCH (09:00)
[2017-03-19] MEDS ORDERED: FINASTERIDE 5 MG TABLET PO SCH (09:00)
[2017-03-19] MEDS ORDERED: buPROPion HCL 150 MG TABLET.SA PO SCH (09:00)
[2017-03-19] MEDS ORDERED: TAMSULOSIN HCL 0.4 MG CAP.SR.24H PO SCH ×2 (09:00→17:00)
== END 2017-03-19 09:00 | disposition home or self-care (01) ==
LOC: ER 15:35 → MS 16:46
PROVIDERS: ADMIT Family Medicine; ATTEND Allergy & Immunology
DX: Z86.73 Personal history of transient ischemic attack (TIA), and cerebral infarction without residual deficits (principal); I25.2 Old myocardial infarction; I10 Essential (primary) hypertension; E78.5 Hyperlipidemia, unspecified; G47.33 Obstructive sleep apnea (adult) (pediatric); K21.9 Gastro-esophageal reflux disease without esophagitis; N40.0 Benign prostatic hyperplasia without lower urinary tract symptoms; F32.9 Major depressive disorder, single episode, unspecified; D64.9 Anemia, unspecified; Z79.01 Long term (current) use of anticoagulants
CPT/HCPCS: 36415; 71020; 80053; 84484; 85025; 85610; 85730; 93005; 94660; 99284; G0378